=== PATIENT | male | born 1945 | race African-American/Black ===

== ENCOUNTER 2021-12-14 15:52 | Inpatient (IN) | payer OTHER ==
--- OUTSIDE RECORDS SUMMARY | 2021-12-14 15:55 | XMS REPORT | Continuity of Care Document ---
:[address] [facility] t Address [address] [place] [address] Care Team Providers Name Role Phone Unavailable Unavailable Unavailable Problems Condition Condition Condition Status Onset Resolution Last Treating Co mments Source Name Details Category Date Date Treatment Clinician Date UNK Diagnosis Active 2017-072019-09-11 Mem oria 2-18 11:04:00 l UNK 00:00: Shaggy 00 Active 06/18/2018 [facility] Hypertensi Problem Active 2019-02-25 M emoria ve 16:00:51 l disorder, [place] systemic Hypertensi arterial ve (disorder) disorder, systemic arterial (disorder) Active Problem 02/25/2019 [facility] STAGE Diagnosis Active 2019-09-11 [facility] RENAL 11:04:00 l DISEASE END [place] STAGE RENAL DISEASE Active [facility] Cough Problem 2019-02-25 Memor ia 16:00:51 l Cough [place] 02/25/2019 [facility] Cardiomega Problem 2019-02-25 M emoria ly 16:00:51 l [place] Cardiomega ly 02/25/2019 [facility] Congestive Problem Active 2019-02-25 M emoria heart 16:00:51 l failure [place] (disorder) Congestive heart failure (disorder) Active Problem 02/25/2019 [facility] Dependence Problem Active 2019-02-25 M emoria on 16:00:51 l hemodialys Abiel n is due to 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 is due to (finding) end stage renal disease (finding) Active Problem 02/25/2019 [facility] History of Problem Active 2019-02-25 M emoria - 16:00:51 l artificial History Her villaseñor 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 Social History Smoking Status Start Date Stop Date Source Social History 2018-08-08 21:58:50 2018-08-08 21:58:50 [facility] Medications Ordered Filled Start Stop Current Ordering Indication Dosage Frequency Signature Comments Components Source Medication Medication Date Date Medication? Clinician (SIG) Name Name sennosides, 2019 Yes 8.6 mg = 1 [facility] 8.6 MG 2-07 tab, PO, l Oral Tablet 20:41: Bedtime, 0 [place] 00 Refill(s) metoprolol 2019- Yes 50 mg = 1 Me moria 50 mg oral 2-07 tab, PO, l tablet, 20:40: Daily, # Abiel n extended 00 30 tab, 0 release Refill(s) atorvastati Yes 20 mg = 1 M emoria n 20 mg 2-07 tab, PO, l oral tablet 20:40: Bedtime, # [place] 00 30 tab, 0 Refill(s) lisinopril Yes 5 mg = 1 Mem oria 5 mg oral 2-07 tab, PO, l tablet 20:39: Daily, # [place] 00 30 tab, 0 Refill(s) cinacalcet 2019- Yes 30 mg = 1 Me moria 30 MG Oral 2-07 tab, PO, l Tablet 20:39: Daily, # [place] [Sensipar] 00 30 tab, 0 Refill(s) Vancomycin 2018- Yes 2001 mg: Me moria 2-07 infuse l 20:00: over 2.5 Shaggy 00 hours For adult patients only: Round to nearest 250 mg per Medical Staff approval MEDICATION WASTE Product Size: 1000 mg Product Wasted: ___ mg Ancef + Yes Notes: Memoria sterile 2-07 (Same As: l water 20 mL 20:00: Ancef, Herm rajeev 00 Kefzol) MEDICATION WASTE Product Size: 1000 mg Product Wasted: ___ mg Vital Signs Vital Name Observation Time Observation Value Comments Source Height 2018-08-08 21:48:00 185.42 cm [facility] Weight 2018-08-08 21:48:00 [facility] [place] BMI Calculated 2018-08-08 21:48:00 Memori al [place] Temperature Oral (F) 2018-08-08 21:48:00 98 F [facility] [place] Heart Rate 2018-08-08 21:48:00 [facility] [place] Respitory Rate 2018-08-08 21:48:00 Memori al [place] Systolic (mm Hg) 2018-08-08 21:48:00 Apolinar rial [place] Diastolic (mm Hg) 2018-08-08 21:48:00 Mem orial [place] Procedures Procedure Date / Time Performed Performing Clinician Lyle e Arteriovenous shunt for [facility] renal dialysis<sup>1</sup> CEIOL - Cataract [facility] n extraction and insertion of intraocular lens Colonoscopy [facility] Hip replacement [facility] Valves of heart and [facility] structures operations Encounters Start End Encounter Admission Attending Care Care Encounter Source Date/Time Date/Time Type Type Clinicians Facility Department ID 2018-08-08 2018-08-08 Outpatient [facility] [id number] Memoria 14:00:00 22:00:00 r Shaggy 00 l [facility] Results Test Description Test Time Test Comments Results Result Comments Source CHEM PANEL 2018-08-08 20:51:00 Test Item Value Reference Range Interpretation Comme nts Chloride Lvl (test code = Chloride Lvl) 102 95-109 [id number] 20:51:00 Test Item Value Reference Range Interpretation Comments CO2 (test code = CO2) 26 24-32 [facility] [id number] 20:51:00 Test Item Value Reference Range Interpretation Comments Calcium Lvl (test code = Calcium Lvl) 8.7 8.5-10.5 [facility] [id number] 20:51:00 Test Item Value Reference Range Interpretation Comments eGFR (test code = eGFR) 7 [facility] [id number] 20:51:00 Test Item Value Reference Range Interpretation Comments AGAP (test code = AGAP) 16.0 10.0-20.0 [id number] 20:51:00 Test Item Value Reference Range Interpretation Comments Segs (test code = Segs) 58.9 45.0-75.0 [id number] 20:51:00 Test Item Value Reference Range Interpretation Comments Lymphocytes (test code = Lymphocytes) 20.9 20.0-40.0 [id number] 20:51:00 Test Item Value Reference Range Interpretation Comments Monocytes (test code = Monocytes) 12.2 2.0-12.0 [id number] 20:51:00 Test Item Value Reference Range Interpretation Comments Eosinophils (test code = 6.3 See_Comment [A utomated message] The Eosinophils) system which ge nerated this result tra nsmitted reference range : <=4.0. The reference r carmita was not used to int erpret this result as normal/abnormal . [facility] [id number] 20:51:00 Test Item Value Reference Range Interpretation Comments Basophils (test code = 1.7 See_Comment [Aut omated message] The Basophils) system which ge nerated this result tra nsmitted reference range : <=1.0. The reference r carmita was not used to int erpret this result as normal/abnormal . [facility] [id number] 20:51:00 Test Item Value Reference Range Interpretation Comments Neutrophils # (test code = Neutrophils 3.7 1.5-8.1 #) [facility] [id number] 20:51:00 Test Item Value Reference Range Interpretation Comments Lymphocytes # (test code = Lymphocytes 1.3 1.0-5.5 #) [facility] [id number] 20:51:00 Test Item Value Reference Range Interpretation Comments Monocytes # (test code 0.8 See_Comment [Aut omated message] The = Monocytes #) system which generated this result tra nsmitted reference range : <=0.8. The reference r carmita was not used to int erpret this result as normal/abnormal . [facility] [id number] 20:51:00 Test Item Value Reference Range Interpretation Comments Eosinophils # (test code 0.4 See_Comment [A utomated message] The = Eosinophils #) system whic h generated this result tra nsmitted reference range : <=0.5. The reference r carmita was not used to int erpret this result as normal/abnormal . [facility] H[id number] 20:51:00 Test Item Value Reference Range Interpretation Comments Basophils # (test code 0.1 See_Comment [Aut omated message] The = Basophils #) system which generated this result tra nsmitted reference range : <=0.2. The reference r carmita was not used to int erpret this result as normal/abnormal . [facility] H[id number] 20:51:00 Test Item Value Reference Range Interpretation Comments WBC (test code = WBC) 6.2 3.7-10.4 [facility] [id number] 20:51:00 Test Item Value Reference Range Interpretation Comments RBC (test code = RBC) 4.13 4.70-6.10 [facility] [id number] 20:51:00 Test Item Value Reference Range Interpretation Comments Hgb (test code = Hgb) 12.0 14.0-18.0 [facility] [id number] 20:51:00 Test Item Value Reference Range Interpretation Comments Hct (test code = Hct) 36.3 42.0-54.0 [facility] H[id number] 20:51:00 Test Item Value Reference Range Interpretation Comments MCV (test code = MCV) 88.0 80.0-94.0 [facility] BANK [id number] 20:51:00 Test Item Value Reference Range Interpretation Comments ABO/Rh (test code = ABO/Rh) B POS [facility] [id number] 20:51:00 Test Item Value Reference Range Interpretation Comments MCH (test code = MCH) 29.0 pg 27.0-31.0 [facility] [id number] 20:51:00 Test Item Value Reference Range Interpretation Comments MCHC (test code = MCHC) 32.9 32.0-36.0 [facility] H[id number] 20:51:00 Test Item Value Reference Range Interpretation Comments RDW (test code = RDW) 16.3 11.5-14.5 [facility] H[id number] 20:51:00 Test Item Value Reference Range Interpretation Comments Platelet (test code = Platelet) 127 133-450 [facility] Hospit[id number] 20:51:00 Test Item Value Reference Range Interpretation Comments MPV (test code = MPV) 9.8 7.4-10.4 [facility] Ho[id number] 20:51:00 Test Item Value Reference Range Interpretation Comments PT (test code = PT) 15.0 s 12.0-14.7 [facility] [id number] 20:51:00 Test Item Value Reference Range Interpretation Comments INR (test code = INR) 1.20 1 0.85-1.17 [facility] [id number] 20:51:00 Test Item Value Reference Range Interpretation Comments PTT (test code = PTT) 38.3 s 22.9-35.8 [facility] B[facility] [id number] 20:51:00 Test Item Value Reference Range Interpretation Comments Antibody Scrn (test Negative (08/08/18 2:51 code = Antibody Scrn) PM) [facility] [id number] 20:51:00 Test Item Value Reference Range Interpretation Comments Glucose Lvl (test code = Glucose Lvl) 75 70-99 [facility] [id number] 20:51:00 Test Item Value Reference Range Interpretation Comments BUN (test code = BUN) 46 7-22 [facility]2019-02-07 20:51:00 Test Item Value Reference Range Interpretation Comments Creatinine Lvl (test code = Creatinine 7.99 0.50-1.40 Lvl) [facility]2019-02-07 20:51:00 Test Item Value Reference Range Interpretation Comments Sodium Lvl (test code = Sodium Lvl) 140 135-145 [facility] [id number] 20:51:00 Test Item Value Reference Range Interpretation Comments Potassium Lvl (test code = Potassium 4.0 3.5-5.1 Lvl) [facility]
--- NOTE | 2021-12-14 17:17 | ER ---
Nurse's Notes [facility] Name: Kodak Mac Age: 76 yrs Sex: Male : 1945 Arrival Date: 12/14/2021 Time: 15:54 Bed 11 Private MD: Diagnosis: Bilateral foot cellulitis and infection;End stage renal disease Presentation: 12/14 15:54 Chief complaint: EMS states: toned out to [facility] dialysis for left foot wound - ld1 dialysis nurses wanted pt to come to hospital. Pt lives at [facility] - currently receiving treatment for foot wound. Coronavirus screen: At this time, the client does not indicate any symptoms associated with coronavirus-19. Ebola Screen: No symptoms or risks identified at this time. Initial Sepsis Screen: Does the patient meet any 2 criteria? No. Patient's initial sepsis screen is negative. Does the patient have a suspected source of infection? Yes: Skin breakdown/wound. Risk Assessment: Do you want to hurt yourself or someone else? Patient reports no desire to harm self or others. Onset of symptoms was December 14, 2021 at 15:56. 15:54 Method Of Arrival: EMS: [facility] ld1 15:54 Acuity: DAVID 3 ld1 Triage Assessment: 15:57 General: Appears in no apparent distress. comfortable, Behavior is calm, cooperative, ld1 appropriate for age. Pain: Denies pain. EENT: No signs and/or symptoms were reported regarding the EENT system. Neuro: Level of Consciousness is awake, alert, obeys commands, Oriented to person, place, time, situation. Cardiovascular: Capillary refill < 3 seconds Patient's skin is warm and dry. Respiratory: Airway is patent Respiratory effort is even, unlabored. GI: Abdomen is flat, non-distended. : No signs and/or symptoms were reported regarding the genitourinary system. Derm: Skin is black, brown, dusky, Wound noted left foot. Musculoskeletal: No signs and/or symptoms reported regarding the musculoskeletal system. Historical: - Allergies: 15:57 No Known Allergies; ld1 - PMHx: 15:57 ESRD; Dialysis - MWF; Atrial fibrillation; Hypertensive disorder; Heart disease; ld1 Chronic systolic heart failure; Hypercholesterolemia; - PSHx: 15:57 None; ld1 - Immunization history:: Adult Immunizations up to date, Client reports receiving the 2nd dose of the Covid vaccine. - Social history:: Smoking status: Patient denies any tobacco usage or history of. Patient/guardian denies using alcohol. Screenin:01 Abuse screen: Denies threats or abuse. Denies injuries from another. Nutritional ld1 screening: No deficits noted. Tuberculosis screening: No symptoms or risk factors identified. Fall Risk None identified. Assessment: 16:01 Reassessment: See triage assessment. ld1 Vital Signs: 15:54 BP 131 / 74; Pulse 50; Resp 18; Temp 98.6(O); Pulse Ox 98% on R/A; Weight 66.1 kg; ld1 Height 5 ft. 10 in. (177.80 cm); Pain 0/10; 16:30 BP 118 / 74; Pulse 59; Resp 16; Pulse Ox 98% on R/A; ld1 17:45 BP 121 / 82; Pulse 61; Resp 18; Pulse Ox 97% on R/A; ld1 18:24 BP 125 / 87; Pulse 54; Resp 18; Pulse Ox 98% on R/A; ld1 15:54 Body Mass Index 20.91 (66.10 kg, 177.80 cm) ld1 ED Course: 15:54 Patient arrived in ED. ld1 15:56 Triage completed. ld1 15:57 Ashanti Turner, TAHMINA is Primary Nurse. ld1 15:57 Arm band placed on right wrist. ld1 16:01 Jason Dotson MD is Attending Physician. kdr 16:01 Patient has correct armband on for positive identification. Placed in gown. Bed in low ld1 position. Call light in reach. Side rails up X2. groundwater monitoring technician on. Pulse ox on. NIBP on. Door closed. Noise minimized. Warm blanket given. 16:01 No provider procedures requiring assistance completed. ld1 17:14 Martín Carter is Hospitalizing Provider. kdr 17:30 Foot Left 3 View XRAY In Process Unspecified. EDMS 17:30 Foot Right 3 View XRAY In Process Unspecified. EDMS 17:31 Eusebia Quintana MD is Hospitalizing Provider. kdr 17:58 COVID-19 SARS RT PCR (Document "Date of Onset" if Symptomatic) Sent. ld1 18:34 Pillow given. Repositioned pt. Placed pillows between knees, rotated to left side. ld1 Raised arms on pillows. Head of bed elevated. 18:34 Diet: Patient given a regular meal tray. Required assistance. ld1 18:34 Repositioned patient. Cleaned of incontinence. ld1 18:59 Accessed peripheral vein via ultrasound, utilizing dynamic ultrasound technique using jd3 18G Sureflo IV catheter ,sterile technique, per hospital protocol. Clean \\T\\ dry. Dressing intact. Good blood return. Flushes easily. 21:03 Patient admitted, IV remains in place. ld1 Administered Medications: No medications were administered Medication: 16:01 VIS not applicable for this client. ld1 Outcome: 17:17 Decision to Hospitalize by Provider. kdr 21:02 Admitted to Med/surg accompanied by tech, via stretcher, room 205, with chart, Report ld1 called to TAHMINA Sellers 21:02 Condition: stable 21:02 Instructed on the need for admit. 22:03 Patient left the ED. vc1 Signatures: Dispatcher [employer] EDMS Jason Dotson MD MD kdr Davies, Jonathon, RN RN Ashanti Brewer RN RN ld1 Annabelle Johnson RN RN vc1
--- NOTE | 2021-12-14 17:17 | EDPHYS ---
Physician Documentation [facility] Name: Kodak Mac Age: 76 yrs Sex: Male : 1945 Arrival Date: 12/14/2021 Time: 15:54 Bed 11 Private MD: ED Physician Jason Dotson HPI: 12/14 17:17 This 76 yrs old Black Male presents to ER via EMS with complaints of Wound Infection. kdr 17:17 Patient was sent from the dialysis center when it was noted that his feet were swollen kdr and had to pull wounds and ecchymotic areas. It is unknown exactly how long the patient has been in this condition. According to the nursing staff in the ED, the patient normally presents to the dialysis center with socks on and so his feet had not been seen there for some time. The patient himself has no complaint.. Severity of symptoms: At their worst the symptoms were moderate in the emergency department the symptoms are unchanged. Historical: - Allergies: 15:57 No Known Allergies; ld1 - PMHx: 15:57 ESRD; Dialysis - MWF; Atrial fibrillation; Hypertensive disorder; Heart disease; ld1 Chronic systolic heart failure; Hypercholesterolemia; - PSHx: 15:57 None; ld1 - Immunization history:: Adult Immunizations up to date, Client reports receiving the 2nd dose of the Covid vaccine. - Social history:: Smoking status: Patient denies any tobacco usage or history of. Patient/guardian denies using alcohol. ROS: 17:32 Constitutional: Negative for fever, chills, and weight loss, Eyes: Negative for injury, kdr pain, redness, and discharge, Neck: Negative for injury, pain, and swelling, Cardiovascular: Negative for chest pain, palpitations, and edema, Respiratory: Negative for shortness of breath, cough, wheezing, and pleuritic chest pain, Abdomen/GI: Negative for abdominal pain, nausea, vomiting, diarrhea, and constipation, Back: Negative for injury and pain. 17:32 MS/extremity: Positive for decreased range of motion, ecchymosis, erythema, pain. Exam: 17:32 Constitutional: This is a well developed, well nourished patient who is awake, alert, kdr and in no acute distress. Head/Face: Normocephalic, atraumatic. 17:32 Musculoskeletal/extremity: Extremities: grossly normal except: noted in the lateral side of left foot, medial aspect of left heel, instep of left foot, ball of left foot, arch of left foot and medial aspect of left toes: noted in the right first toe and right second toe: Vital Signs: 15:54 BP 131 / 74; Pulse 50; Resp 18; Temp 98.6(O); Pulse Ox 98% on R/A; Weight 66.1 kg; ld1 Height 5 ft. 10 in. (177.80 cm); Pain 0/10; 16:30 BP 118 / 74; Pulse 59; Resp 16; Pulse Ox 98% on R/A; ld1 17:45 BP 121 / 82; Pulse 61; Resp 18; Pulse Ox 97% on R/A; ld1 18:24 BP 125 / 87; Pulse 54; Resp 18; Pulse Ox 98% on R/A; ld1 15:54 Body Mass Index 20.91 (66.10 kg, 177.80 cm) ld1 MDM: 17:17 Patient medically screened. kdr 17:32 Data reviewed: vital signs, nurses notes, lab test result(s), radiologic studies. kdr Counseling: I had a detailed discussion with the patient and/or guardian regarding: the historical points, exam findings, and any diagnostic results supporting the discharge/admit diagnosis, lab results, radiology results, the need for further work-up and treatment in the hospital. 12/14 16:08 Order name: CBC with Diff kdr 12/14 16:08 Order name: Chem 7 kdr 12/14 17:27 Order name: COVID-19 SARS RT PCR (Document "Date of Onset" if Symptomatic) ld 12/14 17:36 Order name: NT PRO-BNP EDTX 12/14 17:36 Order name: Urinalysis EDTX 12/14 17:36 Order name: Basic Metabolic Panel EDTX 12/14 16:08 Order name: Foot Left 3 View XRAY kdr 12/14 16:08 Order name: Foot Right 3 View XRAY kdr 12/14 17:36 Order name: Heart Healthy EDTX 12/14 17:36 Order name: Basic Metabolic Panel EDTX 12/14 17:36 Order name: CBC with Automated Diff EDMS 12/14 17:36 Order name: CBC with Automated Diff EDMS 12/14 17:39 Order name: Renal EDTX 12/14 20:24 Order name: Misc. Order: May perform lab draw on foot per Dr. Ochoa. vc1 Administered Medications: No medications were administered Disposition Summary: 12/14/21 17:17 Hospitalization Ordered Hospitalization Status: Inpatient Admission kdr Location: Telemetry/MedSur (Inpatient) kdr Condition: Fair kdr Problem: new kdr Symptoms: are unchanged kdr Bed/Room Type: Standard kdr Provider: Eusebia Quintana(12/14/21 17:31) kdr Room Assignment: [facility](12/14/21 20:49) Diagnosis - Bilateral foot cellulitis and infection kdr - End stage renal disease kdr Forms: - Medication Reconciliation Form kdr - SBAR form kdr Signatures: Dispatcher [employer] EDMS Jason Dotson MD MD kdr Kyalee Guiterrez RN RN Ashanti Tunrer RN RN ld1 Annabelle Johnson RN RN vc1 Corrections: (The following items were deleted from the chart) 17:31 17:17 Martín Carter kdr kdr 20:49 17:17 kdr cg
[2021-12-14] MEDS ORDERED: GUAIFENESIN/CODEINE 5ML UCUP PO PRN (17:32)
[2021-12-14] MEDS ORDERED: MELATONIN 5 MG TABLET PO PRN (17:32)
[2021-12-14] MEDS ORDERED: ACETAMINOPHEN 500 MG TAB PO PRN (17:33)
[2021-12-14] MEDS ORDERED: ONDANSETRON 4 MG/2 ML VIAL IV PRN (17:33)
--- NOTE | 2021-12-14 17:38 | P.HP ---
Certification for Inpatient Patient admitted to: Inpatient With expected LOS: >2 Midnights Patient will require the following post-hospital care: None Practitioner: I am a practitioner with admitting privileges, knowledge of patient current condition, hospital course, and medical plan of care. Services: Services provided to patient in accordance with Admission requirements found in Title 42 Section 412.3 of the Code of Federal Regulations Patient History Date of Service: 12/14/21 Reason for admission: BLE wounds. History of Present Illness: Patient is a 76-year-old male with a past medical history significant for A. fib, hypertension, CHF, ESRD who presented with complaints of bilateral lower extremity wounds with ecchymosis, hematomas and Fluid-filled blisters. Patient is a poor historian and unable to provide any history. Patient is currently alert and oriented x2 and confused. A small area of drainage is noted on the second toe of the right foot. Patient reported pain in bilateral lower extremities rated as 6/10 and described as aching in quality. Patient denies any other signs and symptoms. Symptoms are aggravated or relieved by nothing. Patient was sent to the hospital for medical evaluation. Allergies Unable to Assess Allergy (Unverified 12/14/21 16:54) - Past Medical/Surgical History -: AFIb -: ESRD -: HTN Past Surgical History: Reviewed- Non-Contributory - Family History Family History: Reviewed- Non-Contributory - Social History Alcohol use: No CD- Drugs: No Caffeine use: No Review of Systems is unable to be obtained (Patient continues.) Physical Examination - Physical Exam General: Alert, Oriented x2, Cooperative HEENT: Normocephalic, PERRLA Neck: Supple, 2+ carotid pulse no bruit, JVD not distended Respiratory: Clear to auscultation bilaterally, Normal air movement Cardiovascular: No edema, Normal pulses, Regular rate/rhythm Capillary refill: <2 Seconds Gastrointestinal: Normal bowel sounds, Soft and benign Musculoskeletal: Swelling, Erythema, Tenderness Integumentary: Skin breakdown, Tenderness/swelling, Erythema Neurological: Sensation intact Lymphatics: No axilla or inguinal lymphadenopathy Urinary: Dialysis catheter Assessment and Plan - Plan --Bilateral lower extremity wounds. Bilateral lower extremity with fluid filled blisters, ecchymosis and hematomas. PT wound care consult initiated. Patient placed on prophylactic antibiotics. --Acute pain. We will manage pain with current pain medication regimen. --Anemia of chronic disease. H&H stable. We will continue to monitor hemoglobin and transfuse if less than 7.0 --History of A. fib. Patient has hematomas on his bilateral feet. We will hold off on anticoagulant. Telemetry to monitor for any malignant arrhythmia. --Suspected systolic or diastolic CHF. Patient has a history of CHF per medical record. BNP pending. Echocardiogram to assess for CHF. Continue supportive care. --Bilateral lower extremity edema. Echo pending to rule out CHF. Patient on hemodialysis. Further management per airline customer service agent. Continue supportive care. --ESRD. Nephrology consulted. Further management per airline customer service agent. --DVT prophylaxis with SCDs. Discharge Plan: Jail Plan to discharge in: Greater than 2 days - Advance Directives Does patient have a Living Will: No Does patient have a Durable POA for Healthcare: No - Code Status/Comfort Care Code Status Assessed: Yes Code Status: Full Code Physician Review: Patient Assessed, Agree with Above Assessment and Plan Critical Care: No
--- NOTE | 2021-12-14 17:54 | RAD REPORT ---
EXAM DESCRIPTION: RAD - Foot Right 3 View - 12/14/2021 5:28 pm CLINICAL HISTORY: Pain COMPARISON: Foot Left 3 View dated 12/14/2021 FINDINGS/IMPRESSION: No acute fracture. No malalignment. Calcaneal spurring, midfoot and mild forefo ot degenerative changes. Peripheral vascular calcifications. No radiographic evidence of osteomyeliti s.
[2021-12-14 18:09] LABS: Absolute Lymphocytes (CBC) 1.2 K/uL (0.7-4.9); Hematocrit 36.8 % (39.6-49.0); Lymphocytes % 12.9 % (15.3-44.8); MCV 84.9 fL (80-100); MPV 9.1 fL (7.6-11.3); RBC Red Blood Cell Count 4.33 M/uL (4.33-5.43)
[2021-12-14 18:17] LABS: Potassium 3.9 mmol/L (3.5-5.1)
--- NOTE | 2021-12-14 18:34 | RAD REPORT ---
EXAM DESCRIPTION: RAD - Foot Left 3 View - 12/14/2021 5:28 pm CLINICAL HISTORY: Pain COMPARISON: No comparisons FINDINGS/IMPRESSION: No acute fracture. No malalignment. Midfoot degenerative changes. Osteopenia. P late and screw at the distal tibia. Peripheral vascular calcifications. No radiographic evidence of o steomyelitis.
[2021-12-14] MEDS: PIPER TAZO 3.375 GM in NA CHLORIDE 0.9% 100 ML IV SCH (22:41)
[2021-12-14 23:02] VITALS: BMI 20.9
[2021-12-15] MEDS ORDERED: HEPARIN 5000 UNIT/ML 1 ML VIAL SQ SCH (01:00)
[2021-12-15 04:46] LABS: Absolute Lymphocytes (CBC) 0.7 K/uL (0.7-4.9); Hematocrit 33.3 % (39.6-49.0); Lymphocytes % 8.3 % (15.3-44.8); MCV 83.6 fL (80-100); RBC Red Blood Cell Count 3.98 M/uL (4.33-5.43)
[2021-12-15 05:13] LABS: Magnesium 2.1 mg/dL (1.8-2.4); Phosphorus 2.8 mg/dL (2.5-4.9); Potassium 3.5 mmol/L (3.5-5.1)
[2021-12-15] MEDS: HYDROCODONE/APAP 10/325 TAB PO PRN (05:30)
[2021-12-15] MEDS ORDERED: NA CHLORIDE 0.9% 250 ML IV PRN (08:01)
[2021-12-15] MEDS ORDERED: NA CHLORIDE 0.9% 250 ML ONE (08:10)
--- NOTE | 2021-12-15 08:40 | P.PN ---
Subjective Date of Service: 12/15/[address] [facility]; PATIENT HAD AN ARTERIAL DOPPLER WITH >50% OCCLUSION OF THE LEFT SFA TO DP; FOOT CYANOTIC; WILL START HEPARIN DRIP; CLEAR LIQUIDS CARDIOLOGY CONSULT Review of Systems 10-point ROS is otherwise unremarkable Physical Examination - Vital Signs Temperature: 97.7 F Blood Pressure: 109/73 Pulse: 72 Respirations: 18 Pulse Ox (%): 100 - Physical Exam General: Alert, In no apparent distress, Oriented x2 HEENT: Atraumatic, PERRLA, EOMI Neck: Supple, JVD not distended Respiratory: Clear to auscultation bilaterally, Normal air movement Cardiovascular: Regular rate/rhythm, Normal S1 S2, Systolic murmur Gastrointestinal: Normal bowel sounds, Soft and benign, Non-distended, No tenderness Musculoskeletal: No clubbing, Swelling, Tenderness, Warmth Integumentary: Cyanosis Neurological: Sensation intact, Cranial nerves 3-12 intact - Studies Laboratory Data (last 24 hrs) 12/14/21 17:24: Sodium 137, Potassium 3.9, BUN 22 H, Creatinine 3.83 H, Glucose 54 L 12/14/21 17:24: WBC 9.1, Hgb 11.5 L, Hct 36.8 L, Plt Count 113 L Medications List Reviewed: Yes Assessment & Plan - Problems (Diagnosis) (1) Superficial femoral artery occlusion Current Visit: Yes Status: Acute (2) ESRD (end stage renal disease) Current Visit: Yes Status: Acute (3) Atrial fibrillation Current Visit: Yes Status: Acute (4) CHF (congestive heart failure) Current Visit: Yes Status: Acute - Plan 1. ARTERIAL DOPPLER 2. CARDIOLOGY CONSULT 3. HEPARIN DRIP 4. NEPHROLOGY CONSULT FOR HD 5. STRICT BP AND BS CONTROL 6. GI/DVT PROPHYLAXIS Discharge Plan: Home Plan to discharge in: Greater than 2 days - Advance Directives Does patient have a Living Will: No Does patient have a Durable POA for Healthcare: No - Code Status/Comfort Care Code Status: Full Code Physician Review: Patient Assessed, Agree with Above Assessment and Plan Critical Care: No Time Spent Managing PTS Care (In Minutes): 45
[2021-12-15] MEDS ORDERED: POTASSIUM CL SA 10 MEQ TAB PO ONE (09:00)
[2021-12-15] MEDS: PIPER TAZO 3.375 GM in NA CHLORIDE 0.9% 100 ML IV SCH ×2 (09:35→20:42)
[2021-12-15] MEDS: ASPIRIN 325 MG TAB PO SCH (09:35)
--- NOTE | 2021-12-15 11:04 | RAD REPORT ---
EXAM DESCRIPTION: US - Lower Extremity Arterial Bilat - 12/15/2021 10:43 am CLINICAL HISTORY: PAD Leg pain COMPARISON: No comparisons TECHNIQUE: Bilateral lower extremity arterial Doppler examination was performed with waveform tracin g and velocity measurements. FINDINGS: Right lower extremity arterial system has a monophasic appearance throughout. Left lower extremity arterial system at the level the common femoral artery is triphasic, becoming mo nophasic and in the left superficial femoral artery. This indicate a significant stenosis involving t he superficial femoral artery proximally or distal left common femoral artery. Occlusion of the distal SFA to the ankle is present. IMPRESSION: Diffuse monophasic appearance to the right lower extremity arterial system indicates sig nificant inflow disease. Severe peripheral vascular disease of the left lower extremity rotator system is present, beginning a t the level of the superficial femoral artery proximally. Distal left SFA to the ankle is completely occluded.
[2021-12-15] MEDS ORDERED: LIDOCAINE 1% 20 ML MDV ONE (11:38)
[2021-12-15] MEDS ORDERED: FENTANYL CITR 100 MCG/2 ML ONE (11:38)
[2021-12-15] MEDS ORDERED: HEPA 1000U/500MLS 1,000 UNIT/500 ML BAG IV ONE ×2 (11:38→12:43)
[2021-12-15] MEDS ORDERED: VERAPAMIL HCL 10 MG/4 ML VIAL IV ONE (11:39)
[2021-12-15] MEDS ORDERED: MIDAZOLAM HCL 2 MG/2 ML INJ ONE (11:39)
[2021-12-15] MEDS ORDERED: HEPARIN 5000 UNIT/ML 1 ML VIAL ONE (11:39)
[2021-12-15] MEDS ORDERED: HEPARIN 10,000 UNIT/10 ML VIAL IV ONE (11:39)
[2021-12-15] MEDS ORDERED: ATROPINE SULF 1 MG/10 ML SYR IV ONE (11:40)
[2021-12-15] MEDS ORDERED: NA CHLORIDE 0.9% 0 ML ONE (11:40)
[2021-12-15] MEDS ORDERED: NA CHLORIDE 0.9% 500 ML ONE (11:48)
[2021-12-15] MEDS ORDERED: EPOETIN 4,000 UNIT/ML VIAL IV SCH (13:45)
--- NOTE | 2021-12-15 14:47 | CON ---
Date of Consultation: 12/15/2021 Reason For Consultation: End-stage renal disease, hypertension, electrolyte imbalance. History Of Present Illness: This is a pleasant, well known to me, 76-year-old gentleman with signifi cant past medical history of end-stage renal disease on hemodialysis Sunday, Sunday, Sunday at [facility] through right arm AV fistula, hypertension, AFib, hyperlipidemia, the pat ient was in his regular state of health. The patient came to the dialysis yesterday, found to have h uge bluish coloring in his left leg with significant hematomas, the patient complaining from pains. For that reason, the patient was sent to the hospital. The patient deny any trauma. Denied any feve r, any chills. Yesterday, we managed to finish the dialysis completely. Given the bluish discolorat ion of the toes, we increased the heparin during the dialysis. Again, the patient denied any fever, any chills. Past Medical History: Includes; 1.End-stage renal disease, on hemodialysis, Sunday, Sunday, Sunday through right arm AV fistula b rachiocephalic. 2.Atrial fibrillation. DICTATION ENDS HERE PHILLY/APARNA Voice ID: [id number] Report ID: [id number]
--- NOTE | 2021-12-15 15:29 | CON ---
Date of Consultation: 12/15/2021 Reason For Consultation: Elevated BUN and creatinine, electrolyte imbalance, end-stage renal. History Of Present Illness: This is a pleasant 76-year-old gentleman, well known to me from the dialysis with significant past medical history of end-stage renal disease, on hemodialysis Sunday, Sunday, Sunday through right arm AV fistula, CHF, hypertension, AFib, the patient was seen on dialysis, found to have cyanosis on the toes and the feet with hematoma. For that reason, referred to the hospital. The patient found to have ischemic foot. The patient planned for angiogram today. Past Medical History: Includes; 1. AFib. 2. End-stage renal disease, on dialysis Sunday, Sunday, Sunday through right arm AV fistula. 3. Hypertension. 4. CHF. 5. CAD. Past Surgical History: Includes; 1. AV fistula creation. 2. Angiogram. Family History: Positive for diabetes and hypertension. Social History: Denied smoking, denied drinking, denied direct abuse. In retirement. Review of Systems: Head and Neck: No red eye. No ear pain. GI: No nausea. No vomiting. : No polyuria. No dysuria. No hematuria. Work Force Advisor: Not applicable. Respiratory: No shortness of breath. Cardiovascular: Has irregular heartbeat. Has shortness of breath. Endocrine: No polydipsia. Skin: No rash. Neuro: Has neuropathy. Musculoskeletal: Has foot pain. Physical Examination: General: When I saw the patient, the patient lying in bed. Vital Signs: Blood pressure 130/68, pulse of 92, afebrile. Chest: Clear to auscultation. Heart: S1, S2 irregular. Systolic murmur. Abdomen: Soft, nontender. Extremity: Trace edema. Cyanosis on the little toe and third toe, hematoma on the left foot. Neuro: Alert. No focality. Laboratory Data: WBC 8.4, H and H 10.7/33.3. Sodium 137, potassium 3.5, bicarb 28, BUN 27, creatinine 4.4, calcium 9.4, phosphorus 2.8, magnesium 2.1. BNP 1,[id number]. Current Medications: The patient on include; 1. Zosyn. 2. Aspirin. 3. Zofran. Assessment And Plan: 1. End-stage renal disease. We will continue the patient on dialysis the Sunday, Sunday, Sunday. The patient looks to me still on the normal volume side, on room air. I am going to continue dialysis as per schedule. 2. Hypokalemia. The patient going to be dialyzed on high potassium bath. I do not see the need for any potassium supplement. 3. Hypertension, controlled, optimal. Continue current treatment. 4. Ischemic foot, going to have angiogram today. We will arrange for the dialysis tomorrow. We will follow up with Cardiology. 5. Congestive heart failure, currently euvolemic as by primary. We will dialyze the patient tomorrow per schedule. Thank you, Dr. Quintana, for allowing us to participate in the care of your patient. Time spent examining the patient [id number], reviewing the data of lab and radiology discussing the case with the patient reviewing the case with the senior project leader/team lead including nursing discussing the case with the hospitalist 35-minute LUCIUS Voice ID: [id number] Report ID: [id number] [email or web address]
[2021-12-15 16:14] LABS: Protime INR 1.24
[2021-12-15] MEDS: HEPARIN/D5W 25,000 UNIT/500 ML BAG IV PRN (16:28)
[2021-12-16 06:23] LABS: Potassium 4.2 mmol/L (3.5-5.1)
[2021-12-16] MEDS: ASPIRIN 325 MG TAB PO SCH (09:30)
[2021-12-16] MEDS: PIPER TAZO 3.375 GM in NA CHLORIDE 0.9% 100 ML IV SCH (09:30)
--- NOTE | 2021-12-16 09:38 | ECHO ---
HEIGHT: 5 ft 10 in WEIGHT: 145 lb 11.609 oz DATE OF STUDY: 12/15/[address]: [place] 2-DIMENSIONAL: YES M.MODE: YES DOPPLER: YES COLOR FLOW: YES TDS: PORTABLE: YES DEFINITY: BUBBLE STUDY: DIAGNOSIS: SUSPECTED CONGESTIVE HEART FAILURE CARDIAC HISTORY: CATHERIZATION: YES SURGERY: YES PROSTHETIC VALVE: PACEMAKER: NO MEASUREMENTS (cm) DIASTOLIC (NORMALS) SYSTOLIC (NORMALS) IVSd 1.4 (0.6-1.2) LA Diam 3.6 (1.9-4.0) LVEF 30% LVIDd 4.9 (3.5-5.7) LVIDs 4.1 (2.0-3.5) %FS 16% LVPWd 1.4 (0.6-1.2) Ao Diam 2.7 (2.0-3.7) 2 DIMENSIONAL ASSESSMENT: RIGHT ATRIUM: ENLARGED LEFT ATRIUM: NORMAL RIGHT VENTRICLE: NORMAL LEFT VENTRICLE: DEPRESSED TRICUSPID VALVE: MODERATE TRICUSPID REGURGITATION MITRAL VALVE: MITRAL ANNULAR CALCIFICATION, MILD MITRAL REGURGITATION PULMONIC VALVE: MILD PULMONIC INSUFFICIENCY AORTIC VALVE: BIOPROSTHESIS FUNCTIONING NORMALLY PERICARDIAL EFFUSION: NONE AORTIC ROOT: NORMAL LEFT VENTRICULAR WALL MOTION: ANTERIOR/ JUAN SEPTAL SEVERE HYPOKINESIS DOPPLER/COLOR FLOW: COMMENTS: DEPRESSED LEFT VENTRICULAR EJECTION FRACTION 30-35% WITH WALL MOTION ABNORMALITY ABOVE. AORTIC BIOPROSTHESIS IS SEEN WELL, FUNCTIONING NORMALLY WITH MILD AORTIC INSUFFICIENCY. MILD PULMONIC INSUFFICIENCY, MILD MITRAL REGURGITATION. MODERATE TRICUSPID REGURGITATION WITH RIGHT VENTRICULAR SYSTOLIC PRESSURE 50-55 mmHg. TECHNOLOGIST: WARREN CAMILO
[2021-12-16] MEDS: HEPARIN/D5W 25,000 UNIT/500 ML BAG IV PRN (11:32)
--- NOTE | 2021-12-16 12:02 | P.PN ---
Subjective Date of Service: 12/16/21 Chief Complaint: BLE wounds. Subjective: No new changes Physical Examination - Vital Signs Temperature: 98.6 F Blood Pressure: 113/65 Pulse: 106 Respirations: 18 Pulse Ox (%): 95 - Physical Exam General: In no apparent distress HEENT: Atraumatic, Normocephalic Neck: Supple, JVD not distended Respiratory: Other (Symmetric chest expansion) Cardiovascular: No rubs, No murmurs Gastrointestinal: Soft and benign, No rebound Musculoskeletal: No clubbing Integumentary: No warmth Neurological: Normal speech, Normal tone Urinary: Other (No bladder distention) External genitalia: Deferred Rectal: Deferred - Studies Medications List Reviewed: Yes Assessment And Plan - Plan 1. End-stage renal disease. We will continue the patient on dialysis the Sunday, Sunday, Sunday. HD today. Renal diet. Monitor renal panel. 2. Hypokalemia. Correction via HD. 3. Hypertension. BP at goal. Cont current med regimen. 4. PVD w/ ischemia of feet. Per other services. 5. Congestive heart failure. HD as above. Continue cardioprudent meds. 6. Anemia. H/H at goal, monitor 7. Renal osteodystrophy. Monitor Ca & Phos. Physician Review: Patient Assessed, Agree with Above Assessment and Plan
--- NOTE | 2021-12-16 14:57 | CON ---
Date of Consultation: 12/15/2021 Reason For Consultation: Peripheral arterial disease. History Of Present Illness: Mr. Mac is a 76-year-old male. He has end-stage renal disease. He is on hemodialysis. Has a history of congestive heart failure that is chronic diastolic. Has a history of hypertension, dyslipidemia, who was admitted with ischemic feet and we will have to optionally do an abdominal angiogram on him because of abnormal arterial Doppler bilaterally. He appeared to have 100% occlusion of the left SFA and probably the right SFA as well proximally. The patient, however, has severe contractures. We actually brought him down to the airport maintenance laborer. The patient was unable in a ny circumstances to keep his legs flat and the procedure was actually canceled. Past Medical History: Otherwise negative. Allergies: NONE. Review of Systems: Negative. Social History: Negative. Family History: Noncontributory. Medications: Include aspirin, Plavix, lisinopril, Lipitor, metoprolol, and Zestril. Physical Examination: Vital Signs: He is in atrial fibrillation at a rate of 107, otherwise vital signs are stable, afebri le. HEENT: Negative. Neck: Supple with no bruit. Chest: Clear. Cardiac: Revealed AFib. Abdomen: Benign. Extremities: As stated earlier was contracted with ischemic feet. He is also COVID positive. Diagnostic Data: Creatinine is 5.8. Arterial Doppler as stated earlier. Impression And Plan: Ischemic feet, on aspirin, heparin, antibiotic, not a candidate for angiography . I think he is in atrial fibrillation and we should put him on Xarelto, Eliquis, which may help his legs as well. Consideration should be for CT angiogram or MRA of his abdominal angiogram under gene ral anesthesia, but I will leave that up to Dr. Quintana and Nephrology to decide. Definitely not a cand idate for angiography in the airport maintenance laborer again I think he should be on anticoagulation for hi s atrial fibrillation anyway. Blood pressure and dyslipidemia are stable at this point as is the chr onic congestive heart failure. We will be available for questions. AMADOR/APARNA Voice ID: [id number] Report ID: [id number]
[2021-12-16] MEDS: HYDROCODONE/APAP 10/325 TAB PO PRN (22:01)
--- NOTE | 2021-12-17 00:56 | P.PN ---
Date of Service: 12/16/21 Subjective Had a long discussion with family. They are wanting hospice placement. We will get this set up. Review of Systems 10-point ROS is otherwise unremarkable Physical Examination - Vital Signs reviewed - Physical Exam General: Alert, In no apparent distress, Oriented x2 Respiratory: Clear to auscultation bilaterally, Normal air movement Cardiovascular: Regular rate/rhythm, Normal S1 S2, Systolic murmur Gastrointestinal: Normal bowel sounds, Soft and benign, Non-distended, No tenderness Musculoskeletal: No clubbing, Swelling, Tenderness, Warmth Integumentary: Cyanosis Neurological: Sensation intact, Cranial nerves 3-12 intact Assessment & Plan - Problems (Diagnosis) (1) Superficial femoral artery occlusion Current Visit: Yes Status: Acute (2) ESRD (end stage renal disease) Current Visit: Yes Status: Acute (3) Atrial fibrillation Current Visit: Yes Status: Acute (4) CHF (congestive heart failure) Current Visit: Yes Status: Acute - Plan 1. ARTERIAL DOPPLER 2. CARDIOLOGY CONSULT 3. HEPARIN DRIP 4. NEPHROLOGY CONSULT FOR HD 5. STRICT BP AND BS CONTROL 6. GI/DVT PROPHYLAXIS Discharge Plan: Home Plan to discharge in: Greater than 2 days - Advance Directives Does patient have a Living Will: No Does patient have a Durable POA for Healthcare: No - Code Status/Comfort Care Code Status: Full Code Physician Review: Patient Assessed, Agree with Above Assessment and Plan Critical Care: No Time Spent Managing PTS Care (In Minutes): 45
[2021-12-17] MEDS: ASPIRIN 325 MG TAB PO SCH (07:58)
[2021-12-17 10:12] VITALS: BP 109/73; TEMP 98
[2021-12-17 11:20] VITALS: O2SAT 93
--- NOTE | 2021-12-17 11:45 | PN ---
Date of Progress Note: 12/17/2021 Subjective: The patient was admitted with ischemic foot, tried to do angiogram and failed. The patient planned to go on hospice with dialysis. Physical Examination: Vital Signs: Blood pressure 113/65, pulse of 106, afebrile. Chest: Clear to auscultation. Heart: S1, S2. Systolic murmur. Abdomen: Soft, nontender. Extremities: Dressing on both feet. Laboratory Data: WBC 8.4, H and H 10.7/33.7. Sodium 136, potassium 4.2, bicarb 24, BUN 36, creatinine 5.8, calcium 9.7. Current Medications: The patient on include Epogen, aspirin, heparin, and melatonin. Assessment And Plan: 1. End-stage renal disease. The patient is going to be on hospice. We will continue dialysis Sunday, Sunday, Sunday. Last dialysis yesterday. 2. Atrial fibrillation. Continue to follow up with Cardiology. Continue anticoagulation. 3. Hypertension, controlled, optimal. 4. Hypokalemia. The patient dialyzed on high potassium, recovered. 5. Hyponatremia, corrected with dialysis. 6. Ischemic foot. No intervention as the patient is going to be hospice. Time spent examining the patient [id number], reviewing the data of lab and radiology discussing the case with the patient reviewing the case with the produce production team member including nursing discussing the case with the hospitalist 35-minute LUCIUS Voice ID: [id number] Report ID: [id number] [email or web address]
--- NOTE | 2022-01-01 15:54 | P.DS ---
Discharge Date: 12/17/21 Disposition: HOSPICE-MEDICAL FACILITY Discharge Condition: FAIR Reason for Admission: BLE wounds. - Problems (1) Superficial femoral artery occlusion Status: Acute (2) ESRD (end stage renal disease) Status: Acute (3) Atrial fibrillation Status: Acute (4) CHF (congestive heart failure) Status: Acute Brief History of Present Illness: Patient is a 76-year-old male with a past medical history significant for A. fib, hypertension, CHF, ESRD who presented with complaints of bilateral lower extremity wounds with ecchymosis, hematomas and Fluid-filled blisters. Patient is a poor historian and unable to provide any history. Patient is currently alert and oriented x2 and confused. A small area of drainage is noted on the second toe of the right foot. Patient reported pain in bilateral lower extremities rated as 6/10 and described as aching in quality. Patient denies any other signs and symptoms. Symptoms are aggravated or relieved by nothing. Patient was sent to the hospital for medical evaluation. Hospital Course: Family has decided to proceed with hospice care. We will go ahead and [facility] back to the [facility] under [facility] care. Vital Signs/Physical Exam: Temp Pulse Resp BP Pulse Ox 98.0 F 108 H 20 109/73 95 12/17/21 08:00 12/17/21 08:00 12/17/21 08:00 12/17/21 08:00 12/17/21 05:46 General: Alert, In no apparent distress, Oriented x3 Laboratory Data at Discharge: WBC 8.4 K/uL (4.3-10.9) 12/15/21 04:30 Hgb 10.7 g/dL (13.6-17.9) L 12/15/21 04:30 Hct 33.3 % (39.6-49.0) L 12/15/21 04:30 Plt Count 131 K/uL (152-406) L 12/15/21 04:30 PT 13.7 SECONDS (9.5-12.5) H 12/15/21 15:51 INR 1.24 12/15/21 15:51 APTT Cancelled 12/17/21 12:00 Sodium 136 mmol/L (136-145) 12/16/21 05:00 Potassium 4.2 mmol/L (3.5-5.1) 12/16/21 05:00 BUN 36 mg/dL (7-18) H 12/16/21 05:00 Creatinine 5.80 mg/dL (0.55-1.3) H* D 12/16/21 05:00 Glucose 86 mg/dL (74-106) 12/16/21 05:00 Phosphorus 2.8 mg/dL (2.5-4.9) 12/15/21 04:30 Magnesium 2.1 mg/dL (1.8-2.4) 12/15/21 04:30 Home Medications: Acetaminophen [Tylenol Extra Strength] 1 tab PO BID 12/14/21 Aspirin [Aspirin EC 81 MG] 1 tab PO DAILY 12/14/21 Atorvastatin Calcium [Lipitor*] 1 tab PO BEDTIME 12/14/21 Cetirizine HCl [Zyrtec] 1 tab PO DAILY 12/14/21 Clopidogrel Bisulfate [Plavix*] 1 tab PO DAILY 12/14/21 Docusate [Colace Cap*] 1 cap PO DAILY 12/14/21 Folic Acid/Vitamin B Comp W-C [Nephro-Na Tablet] 1 tab PO DAILY 12/14/21 Ibuprofen [Motrin] 1 tab PO BID 12/14/21 Lisinopril [Zestril] 1 tab PO DAILY 12/14/21 Metoprolol Succinate 1 tab PO BID 12/14/21 Pantoprazole Sodium 1 tab PO DAILY 12/14/21 Sevelamer Carbonate [Renvela] 2 tab PO SEECOM 12/14/21 Apixaban [Eliquis] 2.5 mg PO BID #30 tablet 12/17/21 New Medications: Apixaban [Eliquis] 2.5 mg PO BID #30 tablet Physician Discharge Instructions: -DC IV and DC home with hospice care -Follow-up with PCP in 1 to 2 weeks -Follow-up with Nephrology for HD -Please call Dr. Quintana at [phone] if any questions regarding hospital stay -Please call nursing station at [phone] if any nursing or medication questions -Return to the emergency room if symptoms worsen Diet: Renal Activity: Fall precautions Followup: Neeraj Sotelo MD [ACTIVE - CAN ADMIT] - (Follow up per scheduled HD) Time spent managing pt's care (in minutes): 35
== END 2021-12-17 11:38 | disposition hospice, inpatient (51) | DRG 299 ==
LOC: ER 15:52 → ERHOLD 17:30 → 2ND 21:11
PROVIDERS: ADMIT Hospitalist; ATTEND Hospitalist
PROC: 5A1D70Z Performance of Urinary Filtration, Intermittent, Less than 6 Hours Per Day (ICD-10-PCS; principal; 2021-12-16)
DX: I77.1 Stricture of artery (principal); N18.6 End stage renal disease; U07.1 COVID-19; I13.2 Hypertensive heart and chronic kidney disease with heart failure and with stage 5 chronic kidney disease, or end stage renal disease; I50.32 Chronic diastolic (congestive) heart failure; E87.1 Hypo-osmolality and hyponatremia; Z99.2 Dependence on renal dialysis; I48.91 Unspecified atrial fibrillation; E87.6 Hypokalemia; I99.8 Other disorder of circulatory system; I73.9 Peripheral vascular disease, unspecified; N25.0 Renal osteodystrophy; D63.8 Anemia in other chronic diseases classified elsewhere; S80.922A Unspecified superficial injury of left lower leg, initial encounter; S80.921A Unspecified superficial injury of right lower leg, initial encounter; E78.5 Hyperlipidemia, unspecified
CPT/HCPCS: 36415; 80048; 83735; 83880; 84100; 85025; 85610; 85730; 87040; 90935; 93306; 93925; 99251; 99285; J1644; J2250; J2543; J3010; J7040; J7050; Q5105; U0003